=== PATIENT | male | born 2000 | race Two or more races ===

== ENCOUNTER 2022-09-15 22:40 | Emergency (ER) | payer MEDICAID ==
[2022-09-15 22:48] VITALS: BP 135/95; PULSE 97
[2022-09-15 23:52] LABS: ANION GAP 13.4 mEq/L (7-13); CHLORIDE,CL 103 mmol/L (98-107); SODIUM,NA 139 mmol/L (136-145)
[2022-09-15 23:55] LABS: ESTIMATED GFR 111 mL/min (>=60)
[2022-09-16 00:57] LABS: AMPHETAMINES,URINE NEGATIVE (NEGATIVE); BARBITURATES,URINE NEGATIVE (NEGATIVE); BENZODIAZEPINE,URINE NEGATIVE (NEGATIVE); MDMA (ECSTASY), URINE NEGATIVE (NEGATIVE); METHADONE,URINE NEGATIVE (NEGATIVE); METHAMPHETAMINES,URINE NEGATIVE (NEGATIVE); OPIATES,URINE NEGATIVE (NEGATIVE); OXYCODONE,URINE NEGATIVE (NEGATIVE); PHENCYCLIDINE,URINE NEGATIVE (NEGATIVE); TCA,URINE NEGATIVE (NEGATIVE)
== END 2022-09-16 01:30 | disposition home or self-care (01) ==
LOC: DL.ED 22:40
DX: R45.851 Suicidal ideations (principal); S50.812A Abrasion of left forearm, initial encounter; Z72.0 Tobacco use; Z91.013 Allergy to seafood; Z88.8 Allergy status to other drugs, medicaments and biological substances; Z79.899 Other long term (current) drug therapy
CPT/HCPCS: 36415; 80053; 80305-QW; 80307; 81003; 83735; 84443; 85025; 99285

== ENCOUNTER 2022-12-28 20:58 | Emergency (ER) | payer MEDICAID ==
[2022-12-28 21:12] VITALS: BP 120/82; PULSE 97
[2022-12-28] MEDS ORDERED: Sodium Chloride 0.9% 1,000 ML IV ONE (21:15)
[2022-12-28 21:48] LABS: ANION GAP 15.9 mEq/L (7-13); CHLORIDE,CL 101 mmol/L (98-107); SODIUM,NA 139 mmol/L (136-145)
[2022-12-28 21:50] LABS: ACETAMINOPHEN 0 ug/mL (10-30 (Therapeutic)); ESTIMATED GFR 108 mL/min (>=60)
[2022-12-29 00:24] LABS: AMPHETAMINES,URINE NEGATIVE (NEGATIVE); BARBITURATES,URINE NEGATIVE (NEGATIVE); BENZODIAZEPINE,URINE NEGATIVE (NEGATIVE); MDMA (ECSTASY), URINE NEGATIVE (NEGATIVE); METHADONE,URINE NEGATIVE (NEGATIVE); METHAMPHETAMINES,URINE NEGATIVE (NEGATIVE); OPIATES,URINE NEGATIVE (NEGATIVE); OXYCODONE,URINE NEGATIVE (NEGATIVE); PHENCYCLIDINE,URINE NEGATIVE (NEGATIVE); TCA,URINE NEGATIVE (NEGATIVE)
== END 2022-12-29 00:09 | disposition other institution (70) ==
LOC: DL.ED 20:58
DX: T14.91XA Suicide attempt, initial encounter (principal); Z91.011 Allergy to milk products; Z88.8 Allergy status to other drugs, medicaments and biological substances
CPT/HCPCS: 36415; 80053; 80143; 80179; 80305; 80307; 81003; 84484; 85025; 85610; 93005; 93010; 96360; 99283; 99285; J7030

== ENCOUNTER 2023-01-25 03:06 | Emergency (ER) | payer MEDICAID ==
[2023-01-25 03:30] VITALS: BP 147/96; PULSE 66
== END 2023-01-25 03:33 | disposition home or self-care (01) ==
LOC: DL.ED 03:06
DX: S76.111A Strain of right quadriceps muscle, fascia and tendon, initial encounter (principal); F17.210 Nicotine dependence, cigarettes, uncomplicated; Z79.899 Other long term (current) drug therapy; Z88.8 Allergy status to other drugs, medicaments and biological substances; Z91.011 Allergy to milk products
CPT/HCPCS: 99282; 99283